=== PATIENT | male | born 1985 ===

== ENCOUNTER 2022-09-03 09:10 | Day surgery (SDC) | payer OTHER ==
[~2022-09-03 09:10] MED LIST: COZAAR50 MG PO
[2022-09-03] MEDS ORDERED: PERCOCET 5-3251 EACH PO (14:16)
== END 2022-09-03 16:50 | disposition home or self-care (01) ==
LOC: CIR.AMB 09:10
PROVIDERS: ATTEND Surgery
DX: K80.10 Calculus of gallbladder with chronic cholecystitis without obstruction (principal); Z91.011 Allergy to milk products; Z20.822 Contact with and (suspected) exposure to COVID-19